=== PATIENT | female | born 1975 | race Caucasian/White ===

== ENCOUNTER 2016-08-10 16:08 | Emergency (ER) | payer OTHER, BC ==
[2016-08-10 16:21] VITALS: RESP 18; TEMP 97.4
--- NOTE | 2016-08-10 16:58 | PDOC ---
Lower Extremity Injury HPI - General Chief Complaint: Lower Extremity Problem/Injury Stated Complaint: Right knee pain Date Seen by Provider: 08/10/16 Time Seen by Provider: 16:54 Source: POSITIVE: Patient Exam Limitations: POSITIVE: No limitations Nurse's Notes Reviewed & Considered: Yes - History of Present Illness Initial Comments: Patient comes in chief complaint of right knee pain. 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 When she knelt down she felt a pop in her knee and upon straightening another pop each time her knee pops she has significant pain. Since that time she is unable to bend her knee without eliciting the popping sensation or pain. She denies any fever chills sweats, nausea vomiting or diarrhea, hematuria dysuria, no other myalgias Have you received a tetanus shot in the past 10 years?: Yes Body Location Affected: REPORTS: Lower Extremity (R) Timing: REPORTS: Abrupt Duration: >24 hours Severity: Moderate Quality: REPORTS: "Pain", Stabbing Location at Time of Onset: REPORTS: Work Context of Injury: REPORTS: Other (Flexion of her knee and extension) Location of Injury: REPORTS: Knee (R) Modifying Factors: improves with: Walking, Movement, Rest Associated Symptoms: REPORTS: Snapping, Popping Sensation Any Prior Injuries Related to Current Complaint?: No - Patient Home Medications Home Medications: Home Medications Diltiazem HCl [Diltiazem 24hr Er] 180 mg PO DAILY #90 cap 08/23/15 - Patient Allergies Allergies/Adverse Reactions: Allergies Allergy/AdvReac Type Severity Reaction Status Date / Time No Known Allergies Allergy Verified 08/10/16 16:10 Past Medical History - heen HEENT History: Other (please comment) Additional HEENT History: R Corneal transplant in 1989 Cardiovascular History: Hypertension, Other (please comment) Additional Cardiovasular History: SVT in 2006 Respiratory History: Denies History Gastrointestinal History: Denies History Genitourinary History: Denies History Endocrine History: Denies History Musculoskeletal History: Denies History Prosthesis or Implant: No Neurological History: Denies History Blood Disorders: Denies History Psychiatric History: Denies History History of Sexually Transmitted Diseases: No Female Reproductive History: Denies History LMP: 08/10/16 Cancer History: Denies History In Past Year Been Physically Harmed or Verbally Threatened: No History of MDRO: No History of Other Communicable Diseases: No Tobacco Use: Current Every Day Smoker Alcohol Use: None Substance Use Type: None Previous Surgical History: Yes Type / Date of Surgery: Corneal transplant Anesthesia Reactions: No Malignant Hyperthermia: No Significant Family History: No pertinent family hx ROS - Limitations ROS Limitations: No Limitations Constitution: REPORTS: Denies Symptoms Cardiovascular: REPORTS: Denies Cardiac Symptoms Respiratory: REPORTS: Denies Resp Symptoms Neurological: REPORTS: Denies Neuro Symptoms Gastrointestinal: REPORTS: Denies GI Symptoms Endocrine: REPORTS: Denies Symptoms Musculoskeletal: REPORTS: Joint Pain (Right knee) Genitourinary: REPORTS: Denies Symptoms Eyes: REPORTS: Denies Symptoms ENT: REPORTS: Denies Symptoms Skin: REPORTS: Denies Skin Symptoms Lympathic: REPORTS: Denies Lympathic Symptoms Immunologic: POSITIVE: Denies Symptoms Psychiatric: POSITIVE: Denies Psych Symptoms Lower Ext Complaint Exam - General Appearance General Appearance: POSITIVE: Alert, Cooperative, No Acute Distress, No Evidence of Trauma - Extremities Lower Extremity: POSITIVE: Normal Inspection, Normal Color, Normal Temperature, Skin Intact, No Joint Swelling, Limited ROM, Other (Crepitus under patella with extension and flexion of her right knee) Gait: POSITIVE: Limited by Pain Neurovascular/Tendon: POSITIVE: Sensation Normal, Motor Normal, No Vascular Compromise Skin: POSITIVE: Warm, Dry - HEENT HEENT: POSITIVE: Head Inspection Nml, Eyes Inspection Nml, Ears Inspection Nml, Nose Inspection Nml, PERRL, EOMI - Respiratory / CVS Respiratory / CVS: POSITIVE: No Respiratory Distress - Abdomen Abdomen: Denies Tenderness: (All Quadrants) Lower Ext Complaint Progress - Results Reviewed by me Xrays/CTs/US Reviewed by me: Yes Discussed with Radiologist: No - Patient's Progress School/Work Release Addressed: POSITIVE: Yes Re-Examine Time:: 17:06 Status: POSITIVE: Improved MDM / ED Course: Patient was examined. Review of x-rays per my interpretation shows no bony abnormalities. Assessment: Knee pain. Differential includes meniscal tear, patellofemoral syndrome. Plan: Discharge home, crutches bear weight as tolerated, alternate Tylenol and ibuprofen. Follow up with orthopedics calling tomorrow for an appointment. - Consult Counseled: POSITIVE: Patient, RE: Radiology Results, RE: DX, RE: Need for F/U Patient Care Time - Estimated PCT Patient Care Time (In Minutes): 10 Vital Signs - Recent Vital Signs Vital Signs: Vital Signs (Last 8 hours) Temp Pulse Resp BP Pulse Ox 08/10/16 16:13 97.4 F 91 18 144/97 99 - VS Reviewed Vital Signs Reviewed: Yes Discharge Clinical Impression: Acute knee pain Discharge Disposition: Discharged to Home Condition: Stable Patient Instructions Given at Discharge: Knee Pain (ED)
--- NOTE | 2016-08-11 06:47 | DI ---
RIGHT KNEE, 08/10/2016 4:12 PM: Clinical History: Pain and swelling. Previous Exam: None at this facility. 3 views are submitted. There is no acute soft tissue, osseous, or joint abnormality. Reading: Normal right knee exam.
== END 2016-08-10 17:20 | disposition home or self-care (01) ==
LOC: ER 16:08
DX: M25.561 Pain in right knee (principal); X50.1XXA Overexertion from prolonged static or awkward postures, initial encounter; Y99.0 Civilian activity done for income or pay
CPT/HCPCS: 73562; 99282

== ENCOUNTER → 2016-09-11 | Outpatient (CLI) | payer BC ==
[2016-09-11 16:15] LABS: BASOPHILS % (AUTO) 1.1 % (0-1); EOSINOPHILS # (AUTO) 0.24 10*3/UL; EOSINOPHILS % (AUTO) 2.7 % (0-8); HEMATOCRIT 42.5 % (37.0-47.0); HEMOGLOBIN 14.3 g/dL (12.0-16.0); LYMPHOCYTES # (AUTO) 2.65 10*3/uL; MEAN CORPUSCULAR HEMOGLOBIN 31.9 PG (27-31); MEAN CORPUSCULAR HGB CONC 33.6 g/dL (33-37); MEAN CORPUSCULAR VOLUME 94.9 FL (81-99); MEAN PLATELET VOLUME 10.4 FL (7.4-12.2); MONOCYTES # (AUTO) 0.65 10*3/UL (0.3-0.8); MONOCYTES % (AUTO) 7.4 % (5-15); NEUTROPHILS # (AUTO) 5.15 10*3/UL; NEUTROPHILS % (AUTO) 58.5 % (50-80); RED BLOOD COUNT 4.48 10^6/uL (4.20-5.40)
[2016-09-11 16:31] LABS: PLATELET MORPHOLOGY COMMENT NORMAL MORPHOLOGY (NORM); RBC MORPHOLOGY COMMENT NORMAL MORPHOLOGY (NORM); WBC MORPHOLOGY COMMENT NORMAL MORPHOLOGY (NORM)
[2016-09-11 16:32] LABS: BLOOD UREA NITROGEN 14 mg/dL (7-22); BUN/CREATININE RATIO 23.33 (6-20); EST GLOMERULAR FILTRATION > 60 (>60 ml/min/1.73m(2)); SERUM ALBUMIN 4.4 g/dL (3.5-4.8)
== END ==
LOC: MOB LAB 15:05
PROVIDERS: ATTEND Physician Assistant Medical
DX: I10 Essential (primary) hypertension (principal); F17.200 Nicotine dependence, unspecified, uncomplicated
CPT/HCPCS: 36415; 80053; 84443; 85025